=== PATIENT | female | born 1950 | race Caucasian/White ===

== ENCOUNTER 2023-05-17 13:47 | Outpatient (CLI) | payer MEDICARE, BC, OTHER | END 2023-05-17 13:48 | disposition home or self-care (01) | LOC: CSHULT 13:47 | PROVIDERS: ATTEND Specialist | DX: E04.1 Nontoxic single thyroid nodule (principal) | CPT/HCPCS: 76536 ==

== ENCOUNTER 2024-10-21 13:03 | Outpatient (CLI) | payer MEDICARE, OTHER | END 2024-10-21 13:04 | disposition home or self-care (01) | LOC: CSHMAMMO 13:03 | PROVIDERS: ATTEND Family Medicine | DX: Z12.31 Encounter for screening mammogram for malignant neoplasm of breast (principal); Z85.3 Personal history of malignant neoplasm of breast; Z85.038 Personal history of other malignant neoplasm of large intestine; Z90.11 Acquired absence of right breast and nipple | CPT/HCPCS: 77063; 77067 ==